=== PATIENT | male | born 1970 | race Two or more races ===

== ENCOUNTER 2017-01-31 06:28 | Emergency (ER) | payer MEDICAID ==
[~2017-01-31] VITALS: Ht 175.3 cm; Wt 81.6 kg
[~2017-01-31 06:28] MED LIST: ADALKIT2; GABA-339; OXYC15TA48; QUET200T30; TRIA25CA PO
[2017-01-31 08:15] LABS: Basophils # (auto) 0 uL; Basophils % (auto) 0.2 % (0.0-2.0); Eosinophils # (auto) 0 uL; Eosinophils % (auto) 0.2 % (0.0-7.0); Hematocrit 43.9 % (41.0-53.0); Hemoglobin 14.7 g/dL (13.5-17.5); Lymphocytes # (auto) 1.3 uL; Lymphocytes % (auto) 10.2 % (10.0-50.0); Mean Corpuscular Hemoglobin 28.6 pg (28.0-32.0); Mean Corpuscular Hgb Conc. 33.4 g/dL (32.0-36.0); Mean Corpuscular Volume 85.6 fL (80.0-100.0); Monocytes # (auto) 0.5 uL; Neutrophils # (auto) 11.1 uL; Neutrophils % (auto) 85.4 % (37.0-80.0); Platelet Count (auto) 454 10^3/uL (140-450); Red Cell Distribution Width 13.9 % (11.6-16.0); White Blood Cell 12.9 10^3/uL (4.4-10.8)
[2017-01-31 08:37] LABS: Albumin 4.1 g/dL (3.4-5.0); Alkaline Phosphatase 118 U/L (45-117); Anion Gap 10 (5-15); Aspartate Aminotransferase 36 U/L (15-37); BUN/Creatinine Ratio 17.7; Bilirubin, Total 1.1 mg/dL (0.2-1.0); Blood Urea Nitrogen 14 mg/dL (7-18); Calcium 9.1 mg/dL (8.5-10.1); Carbon Dioxide 30 mmol/L (21-32); Chloride 103 mmol/L (98-107); GFR African American 136 mL/min; GFR Non-African American 113 mL/min; Glucose 101 mg/dL (74-106); Potassium 4.7 mmol/L (3.5-5.1); Sodium 143 mmol/L (136-145)
[2017-01-31 08:39] LABS: INR 1.01 (0.9-1.15); Partial Thromboplastin Time 27.8 sec (22.64-33.71); Prothrombin Time 10.4 sec (9.37-12.3)
[2017-01-31] MEDS ORDERED: LIDOCAINE 2%HCL (LOCAL ANESTH.) INJ 20ML MDV ID ONE (10:00)
[2017-01-31] MEDS ORDERED: BACITRACIN TOP OINT 1 UD PKG TOP ONE (10:00)
[2017-01-31 12:05] VITALS: BP 159/108
== END 2017-01-31 13:06 | disposition home or self-care (01) ==
LOC: ER 06:28
DX: S01.112A Laceration without foreign body of left eyelid and periocular area, initial encounter (principal); S02.2XXA Fracture of nasal bones, initial encounter for closed fracture; M19.90 Unspecified osteoarthritis, unspecified site; I10 Essential (primary) hypertension; F17.210 Nicotine dependence, cigarettes, uncomplicated; Z79.899 Other long term (current) drug therapy; Y09 Assault by unspecified means; Y93.89 Activity, other specified; Y99.8 Other external cause status; Y92.89 Other specified places as the place of occurrence of the external cause
CPT/HCPCS: 12013; 36415; 70450; 70486; 72125; 80053; 80320; 85025; 85610; 85730

== ENCOUNTER → 2020-06-29 | Emergency (ER) | payer OTHER, MEDICAID ==
[~2020-06-29] VITALS: Ht 172.7 cm; Wt 54.4 kg
[2020-06-29 19:33] VITALS: BP 152/90
== END | disposition home or self-care (01) ==
LOC: EDUNIT# 19:11 → EDBD 19:22 → ER 19:22
DX: S13.9XXA Sprain of joints and ligaments of unspecified parts of neck, initial encounter (principal); S23.3XXA Sprain of ligaments of thoracic spine, initial encounter; V43.52XA Car driver injured in collision with other type car in traffic accident, initial encounter; Y93.89 Activity, other specified; Y92.488 Other paved roadways as the place of occurrence of the external cause; Y99.8 Other external cause status

== ENCOUNTER 2020-06-30 01:32 | Emergency (ER) | payer MEDICAID ==
[~2020-06-30] VITALS: Ht 172.7 cm; Wt 77.1 kg
[2020-06-30 01:47] VITALS: BP 157/105
[2020-06-30] MEDS ORDERED: cloNIDine HCL 0.1 MG TAB PO ONE (02:00)
[2020-06-30] MEDS ORDERED: KETOROLAC TROMETH 60MG/2ML VIAL IM ONE (04:45)
== END 2020-06-30 05:20 | disposition home or self-care (01) ==
LOC: ER 01:32
DX: S16.1XXA Strain of muscle, fascia and tendon at neck level, initial encounter (principal); M54.6 Pain in thoracic spine; I10 Essential (primary) hypertension; M19.90 Unspecified osteoarthritis, unspecified site; E78.5 Hyperlipidemia, unspecified; V89.2XXA Person injured in unspecified motor-vehicle accident, traffic, initial encounter; Y93.89 Activity, other specified; Y92.410 Unspecified street and highway as the place of occurrence of the external cause; Y99.8 Other external cause status
CPT/HCPCS: 70450; 72125; 72128; 96372; 99285; J1885

== ENCOUNTER 2025-03-08 17:24 | Emergency (ER) | payer MEDICAID ==
[~2025-03-08] VITALS: Ht 172.7 cm; Wt 91.0 kg
[2025-03-08] MEDS: NALOXONE HCL 0.4 MG/ML VIAL ONE (17:45)
[2025-03-08] MEDS: NALOXONE HCL 1MG/ML 2ML SYRINGE IV ONE (17:45)
[2025-03-08] MEDS: NALOXONE HCL 1MG/ML 2ML SYRINGE ONE (17:45)
--- NOTE | 2025-03-08 18:14 | ED.PDOC ---
Altered Mental Status HPI Comments 54 year old male presents to the emergency department via EMS with a chief complaint of overdose onset today (03/08/25). Per EMS, patient was found face down on dirt ground, bystander called 911. Upon their arrival, patient was unresponsive, pinpoint pupils, 0.4 mg Narcan was given. Patient had some response, another 0.4 mg Narcan was given prior to ED arrival. Upon ED arrival, patient was responsive to painful stimuli. Patient states he smoked marihuana earlier today, denies any other drug use. Is able to answer the year, city he is in. PMHx HTN. No other symptoms or modifying factors present at this time. Chief Complaint: Overdose Time Seen by MD: 18:00 Primary Care Provider: UNKNOWN Reviewed Notes: Medications, Allergies Allergies: Coded Allergies: NO KNOWN ALLERGIES (Unverified , 02/21/13) Home Meds Reported Medications Hydrochlorothiazide W/Triamter (Hctz/Triamterene) 1 Cap Cap, 25 MG PO OD 03/12/13 Adalimumab (Humira Pen-Psoriasis Star) Psoriasi Kit 02/21/13 Oxycodone Hcl (Roxicodone) 15 Mg Tab 07/30/12 Quetiapine Fumerate (Seroquel) 200 Mg Tab 04/03/10 Gabapentin (Gabapentin) 600 Mg Tab 04/03/10 Information Source: Patient, Emergency Med Personnel Mode of Arrival: EMS Severity: Moderate Timing: Hours Duration: Since onset Prehospital treatment: Other (Narcan) Quality: Decreased Alertness, Change in Behavior Recent: None History of: None Past Medical History PAST MEDICAL HISTORY: Arthritis, HTN Surgical History: Hernia Repair Family History Family History: Unknown Social History Smoker: Cigarettes, Greater Than 1 Pack/Day Alcohol: Denies ETOH Use Drugs: Marijuana Lives In: Home Constitutional: denies: chills, diaphoresis, fatigue, fever, malaise, sweats, weakness, others EENTM: denies: blurred vision, double vision, ear bleeding, ear discharge, ear drainage, ear pain, ear ringing, eye pain, eye redness, hearing loss, mouth pain, mouth swelling, nasal discharge, nose bleeding, nose congestion, nose pain, photophobia, tearing, throat pain, throat swelling, voice changes, others Respiratory: denies: cough, hemoptysis, orthopnea, SOB at rest, shortness of breath, SOB with excertion, stridor, wheezing, others Cardiovascular: denies: chest pain, dizzy spells, diaphoresis, Dyspnea on exertion, edema, irregular heart beat, left arm pain, lightheadedness, palpitations, PND, syncope, others Gastrointestinal: denies: abdomen distended, abdominal pain, blood streaked bowels, constipated, diarrhea, dysphagia, difficulty swallowing, hematemesis, melena, nausea, poor appetite, poor fluid intake, rectal bleeding, rectal pain, vomiting, others Genitourinary: denies: burning, dysuria, flank pain, frequency, hematuria, incontinence, penile discharge, penile sore, pain, testicle pain, testicle swelling, urgency, others Neurological: denies: dizziness, fainting, headache, left sided numbness, left sided weakness, numbness, paresthesia, pre-existing deficit, right sided numbness, right sided weakness, seizure, speech problems, tingling, tremors, weakness, others Musculoskeletal: denies: back pain, gout, joint pain, joint swelling, muscle pain, muscle stiffness, neck pain, others Integumetry: denies: bruises, change in color, change in hair/nails, dryness, laceration, lesions, lumps, rash, wounds, others Allergic/Immunocompromised: denies: Difficulty Healing, Frequent Infections, H kyrie, Itching, others Hematologic/Lymphatic: denies: anemia, blood clots, easy bleeding, easy bruising, swollen glands, others Endocrine: denies: excessive hunger, excessive sweating, excessive thirst, excessive urination, flushing, intolerance to cold, intolerance to heat, unexplained weight gain, unexplained weight loss, others Psychiatric: reports: others (overdose); denies: anxiety, bipolar disorder, depression, hopeless, panic disorder, schizophrenia, sleepless, suicidal All Other Systems: Reviewed and Negative Physical Exam General Appearance: No Apparent Distress, Normal HEENT: Normal ENT Inspection, Pharynx Normal, TMs Normal Neck: Full Range of Motion, Non-Tender, Normal, Normal Inspection Respiratory: Chest Non-Tender, Lungs Clear, No Accessory Muscle Use, No Respiratory Distress, Normal Breath Sounds Cardiovascular: No Edema, No JVD, No Murmur, No Gallop, Normal Peripheral Pulses, Regular Rate/Rhythm Breast Exam: Deferred Gastrointestinal: No Organomegaly, Non Tender, No Pulsatile Mass, Normal Bowel Sounds, Soft Genitalia: Deferred Pelvic: Deferred Rectal: Deferred Extremities: No calf tenderness, Normal capillary refill, Normal inspection, Normal range of motion, Non-tender, No pedal edema Musculoskeletal : Apperance: Normal Neurologic: Alert, wax cutter II-XII nml as Tested, No Motor Deficits, Normal Affect, Normal Mood, No Sensory Deficits Cerebellar Function: Normal Reflexes: Normal Skin: Dry, Normal Color, Warm Lymphatic: No Adenopathy Was a procedure done? Was a procedure done?: No Differential Diagnosis (ALOC) Differential Diagnosis: Closed Head Injury, Drug Overdose, ETOH Intoxication, Other Other Differential Diagnosis Differential diagnosis includes but is not limited to: encephalitis, encephalopathy, toxic overdose, traumatic injury, infectious process, hypovolemia and others X-Ray, Labs, Meds, VS Vital Signs Date Time Temp Pulse Resp B/P (MAP) Pulse Ox O2 Delivery O2 Flow Rate FiO2 03/08/25 18:30 97.5 101 12 127/81 (96) 95 97.5 03/08/25 17:50 99 03/08/25 17:40 98.7 92 18 125/69 (87) 95 98.7 Lab Test 03/08/25 18:23 Range/Units White Blood Count 6.1 4.4-10.8 10^3/uL Red Blood Count 4.70 4.5-5.90 10^6/uL Hemoglobin 13.7 13.5-17.5 g/dL Hematocrit 40.3 L 41.0-53.0 % Mean Corpuscular Volume 85.7 80.0-100.0 fL Mean Corpuscular Hemoglobin 29.1 28.0-32.0 pg Mean Corpuscular Hemoglobin Concent 34.0 32.0-36.0 g/dL Red Cell Distribution Width 13.6 11.8-14.3 % Platelet Count 368 140-450 10^3/uL Mean Platelet Volume 7.5 6.9-10.8 fL Neutrophils (%) (Auto) 62.8 37.0-80.0 % Lymphocytes (%) (Auto) 28.5 10.0-50.0 % Monocytes (%) (Auto) 6.2 0.0-12.0 % Eosinophils (%) (Auto) 1.7 0.0-7.0 % Basophils (%) (Auto) 0.8 0.0-2.0 % Neutrophils # (Auto) 3.8 1.6-8.6 10 ^3/uL Lymphocytes # (Auto) 1.7 0.4-5.4 10 ^3/uL Monocytes # (Auto) 0.4 0-1.3 10 ^3/uL Eosinophils # (Auto) 0.1 0-0.8 10 ^3/uL Basophils # (Auto) 0 0-0.2 10 ^3/uL Nucleated Red Blood Cells 0.1 % Sodium Level Pending Potassium Level Pending Chloride Level Pending Carbon Dioxide Level Pending Anion Gap Pending Blood Urea Nitrogen Pending Creatinine Pending Glomerular Filtration Rate Calc Pending BUN/Creatinine Ratio Pending Serum Glucose Pending Calcium Level Pending Total Bilirubin Pending Aspartate Amino Transferase (AST) Pending Alanine Aminotransferase (ALT) Pending Alkaline Phosphatase Pending Total Protein Pending Albumin Pending Plasma/Serum Blood Alcohol Pending Current Medications Medications (Trade) Dose Ordered Sig/Adonay Route Start Time Stop Time Status Last Admin Naloxone HCl (Narcan) 2 mg ONCE ONCE IV 03/08/25 18:00 03/08/25 18:01 DC 03/08/25 17:45 Time of 1ST Reevaluation: 18:30 Reevaluation 1ST: Unchanged Patient Education/Counseling: Diagnosis, Treatment, Prognosis Family Education/Counseling: No Family Present Additional Information The following tests were ordered, and results were reviewed by me: CBC, CMP, CT HEAD WO CONTRAST, DRUG SCREEN, BLOOD ALCOHOL, EKG Additional Information was gathered from interviewing the following independent historians: EMS I reviewed and agreed with the following test results read by other providers: CT HEAD WO CONTRAST I discussed treatment and results with medical personnel and: Patient Comprehensive systems review obtained and negative except for what is stated in the HPI. Departure 1 Departure Time of Disposition: 19:09 Impression: Primary Impression: Episode of altered consciousness Disposition: LEFT AGAINST MEDICAL ADVICE Condition: Stable Comments On reevaluation the patient is declining admission and wants to go home. I have voiced my concerns for the patient's health given that a full evaluation and treatment had not occurred. I have discussed the need for continued evaluation to determine if their symptoms are caused by a condition that present risk of or morbidity. Risks including but not limited to , permanent disability, prolonged hospitalization, prolonged illness, were discussed. I discussed the specific benefits of additional treatment, as well as tried offering alternative options in hopes that the patient might be amenable to partial evaluation and treatment which would be medically beneficial to the patient. However, the patient declined my options and insisted on leaving. Patient has a clear sensorium and GCS 15 and expresses understanding of the risks with leaving. Because I have been unable to convince the patient to stay, I answered all of his questions about his condition and asked him to return to the ED as soon as possible to complete their evaluation, especially if their symptoms worsen or do not improve. I emphasized that leaving against medical advice does not preclude returning here for further evaluation. I asked the patient to return if they change their mind about the further evaluation and treatment. I strongly encouraged the patient to return to this Emergency Department or any Emergency Department at any time, particularly with worsening symptoms. Critical Care Note Critical Care Time?: No Stability Stability form required: No I personally scribed for ALEJANDRA MEDINA MD ([email or web address]) on 03/08/25 at 18:14. Electronically submitted by Vonda Waters ([email or web address]). I personally scribed for ALEJANDRA MEDINA MD ([email or web address]) on 03/08/25 at 19:07. Electronically submitted by Vonda Waters ([email or web address]). ALEJANDRA MEDINA MD Mar 08, 2025 18:14
[2025-03-08 18:30] VITALS: BP 127/81; PULSE 100; RESP 12; TEMP 97.5; O2SAT 95
[2025-03-08 18:44] LABS: Basophils # (auto) 0 10 ^3/uL (0-0.2); Basophils % (auto) 0.8 % (0.0-2.0); Eosinophils # (auto) 0.1 10 ^3/uL (0-0.8); Eosinophils % (auto) 1.7 % (0.0-7.0); Hematocrit 40.3 % (41.0-53.0); Hemoglobin 13.7 g/dL (13.5-17.5); Lymphocytes # (auto) 1.7 10 ^3/uL (0.4-5.4); Lymphocytes % (auto) 28.5 % (10.0-50.0); Mean Corpuscular Hemoglobin 29.1 pg (28.0-32.0); Mean Corpuscular Volume 85.7 fL (80.0-100.0); Monocytes # (auto) 0.4 10 ^3/uL (0-1.3); Monocytes % (auto) 6.2 % (0.0-12.0); Neutrophils # (auto) 3.8 10 ^3/uL (1.6-8.6); Neutrophils % (auto) 62.8 % (37.0-80.0); Nucleated Red Blood Cells % 0.1 %; Platelet Count (auto) 368 10^3/uL (140-450); Red Cell Distribution Width 13.6 % (11.8-14.3); White Blood Cell 6.1 10^3/uL (4.4-10.8)
--- NOTE | 2025-03-08 18:54 | ECG ---
[facility] Test Date: 2025-03-08 Test Time: 17:48:12 Pat Name: JEANNE DENNIS Department: ED Room: Gender: M [employer]: MEGAN : 1970 Requested By: ALEJANDRA MEDINA Order Number: [id number] Reading MD: Measurements Intervals [place] Rate: 99 P: 45 [place]: 163 QRS: 5 QRSD: 87 T: 49 QT: 357 QTc: 459 Interpretive Statements Sinus rhythm Please click the below link to view image of tracing.
[2025-03-08 19:08] LABS: Alanine Aminotransferase 36 U/L (7-40); Anion Gap 11 (5-15); Aspartate Aminotransferase 18 U/L (13-40); BUN/Creatinine Ratio 8.1 (10.0-20.0); Bilirubin, Total 0.7 mg/dL (0.2-1.0); Blood Alcohol 172.2 mg/dL (<10); Calcium 9.2 mg/dL (8.7-10.4); Carbon Dioxide 24 mmol/L (20-31); Glucose 100 mg/dL (74-106); Potassium 3.8 mmol/L (3.5-5.1); Sodium 142 mmol/L (136-145); Total Protein 6.8 g/dL (5.7-8.2)
[2025-03-08 19:16] LABS: Alkaline Phosphatase 140 U/L (46-116); Blood Urea Nitrogen 7 mg/dL (9-23); Chloride 107 mmol/L (98-107)
[2025-03-08 19:32] LABS: Albumin 4.4 g/dL (3.2-4.8)
[2025-03-08 20:02] LABS: Amphetamine Screen, Urine Pos (NEGATIVE); Barbiturate Scree,Urine Neg (NEGATIVE); Benzodiazephine Screen, Urine Neg (NEGATIVE); Cannabinoid Screen, Urine Pos (NEGATIVE); Cocaine Screen, Urine Neg (NEGATIVE); Opiate Scree,Urine Neg (NEGATIVE); Phencyclidine Screen, Urine Neg (NEGATIVE)
== END 2025-03-08 19:00 | disposition left against medical advice (07) ==
LOC: ER 17:24 → EDBD 17:24 → EDSEX 17:24 → ER 19:00
DX: T50.7X1A Poisoning by analeptics and opioid receptor antagonists, accidental (unintentional), initial encounter (principal); R40.0 Somnolence; I10 Essential (primary) hypertension; M19.90 Unspecified osteoarthritis, unspecified site; F17.210 Nicotine dependence, cigarettes, uncomplicated; Z98.890 Other specified postprocedural states; Y92.89 Other specified places as the place of occurrence of the external cause
CPT/HCPCS: 36415; 80053; 80307; 80320; 85025; 93005; 96374; 99284; J2310